=== PATIENT | female | born 1990 | race Caucasian/White ===

== ENCOUNTER 2021-03-01 01:51 | Inpatient (IN) | payer BC, SELFPAY ==
[2021-03-01] VITALS (7 sets, daily range): BP systolic 117–150; BP diastolic 66–96; PULSE 88–118; RESP 16–20; TEMP 36.1–36.8; O2SAT 98–100
--- NOTE | ~2021-03-01 | XR_ITS ---
XR abdomen NG/feed tube rechec INDICATION: Evaluate NG tube position. TECHNIQUE: Limited KUB perform for evaluating NG tube . COMPARISON: 03/01/2021 FINDINGS: NG tube tip in the stomach. Visualized bowel gas pattern is unremarkable. IMPRESSION: 1: NG tube tip in the stomach. Reviewed, dictated and finalized at location B.
--- NOTE | ~2021-03-01 | XR_ITS ---
EXAMINATION: XR abdomen/kub 1V DATE: 03/02/2021 05:36 INDICATION: Small bowel obstruction TECHNIQUE: A supine view of the abdomen on radiographs was obtained. COMPARISON: 03/01/2021 FINDINGS: Nasogastric tube tip projects over the region of the gastric pylorus. Small amount of gas and stool s cattered throughout the colon. Single loop of nondilated gas-filled loops of small bowel in the right abdomen. Bones are unremarkable. IMPRESSION: 1. Nonspecific bowel gas pattern with no dilated loops of gas-filled bowel to suggest obstruction. Reviewed, dictated and finalized at location A. IMPRESSION: 1. Nonspecific bowel gas pattern with no dilated loops of gas-filled bowel to s uggest obstruction.
--- NOTE | ~2021-03-01 | XR_ITS ---
EXAMINATION: XR UGI water soluble w sbs EXAM DATE: 03/02/2021 11:03 INDICATION: sbo f/u TECHNIQUE: Limited water-soluble upper GI examination was performed followed by small bowel series. Pulsed dose reduction fluoroscopy was used with fluoroscopic time of 0.1 minutes. A total of 15 image s obtained for the exam. The DAP for this procedure was 19 Gycm2. Correlation is made to CT abdomen and pelvis from yesterday. FINDINGS: There is no esophageal stricture, diverticulum or mass identified. Gastroesophageal juncti on is normal in appearance. Reflux was not demonstrated during this examination. The stomach has a normal appearance without evidence of mass lesion, ulceration or filling defect. T here is normal rugal fold pattern. The duodenum and duodenal sweep are normal in appearance. Approximately 50 cm of the terminal ileum/distal ileum is mildly dilated with some mucosal irregulari ties consistent with edema, terminal ileitis. Could be infectious, does not have rigid appearance of inflammatory bowel disease, but that can't be excluded. Contrast reached the rectum on the 15 minute image. IMPRESSION: Terminal ileitis, could be infectious etiology but can't exclude inflammatory bowel disea se. Rapid transit time. Reviewed, dictated and finalized at location A. IMPRESSION: Terminal ileitis, could be infectious etiology but can't exclude in flammatory bowel disease. Rapid transit time.
--- NOTE | ~2021-03-01 | XR_ITS ---
EXAMINATION: XR abdomen NG/feed tube insert DATE: 03/01/2021 04:10 INDICATION: Nasogastric tube insertion TECHNIQUE: A supine view of the abdomen and lower chest was obtained for evaluation of feeding tube placement. COMPARISON: CT dated 03/01/2021 FINDINGS: Nasogastric tube tip in proximal side port in the body of the stomach. Nonspecific bowel gas pattern with small amount of gas within a few nondilated loops of bowel. There is some excreted contrast at t he bilateral renal collecting system in the earlier contrast-enhanced CT . Visualized mid to lower selena ngs are clear. Heart size is normal. IMPRESSION: 1. Nasogastric tube in the stomach. Reviewed, dictated and finalized at location A.
--- NOTE | ~2021-03-01 | CT_ITS ---
EXAMINATION: CT abdomen pelvis w con DATE: 03/01/2021 03:02 INDICATION: Abdominal distention TECHNIQUE: Computed tomography (CT) of the abdomen and pelvis was performed with 100 mL Omnipaque-350 intravenous contrast. Automated exposure control and iterative reconstruction technique were employe d. The dose-length product was 1240.18 mGy-cm. COMPARISON: None FINDINGS: Lung bases are clear. Heart size is normal. No pericardial or pleural effusion. Liver, gallbladder, s pleen, pancreas, bilateral adrenal glands and kidneys are normal. There are a few mildly dilated flui d-filled loops of ileum in the lower abdomen. This extends to the ileocecal valve with pseudofeces si gn at the terminal ileum. There appears to be mild wall thickening at the terminal ileum. The colon i s largely decompressed. There is some fatty infiltration of the wall of the proximal colon likely rel ated to body habitus. Normal appendix. Small amount of likely reactive ascites in the lower abdomen a nd pelvis. Bladder, anteverted uterus and right adnexa are unremarkable. 11 mm likely partially ruptu red corpus luteum cyst at the left ovary with discontinuity to the peripherally enhancing wall of the cyst. No pathologically enlarged abdominal or pelvic lymphadenopathy. Bones are unremarkable. IMPRESSION: 1. Likely early or partial distal small bowel obstruction with pseudofeces sign at the terminal ileum where there is mild wall thickening. The wall thickening could be related to the pseudofeces or to a pre-existing terminal ileitis which could be infectious or inflammatory in etiology such as in the s etting of Crohn's disease. 2. Small likely ruptured corpus luteum cyst at the left ovary. 3. Small amount of likely reactive ascites in the lower abdomen and pelvis. Reviewed, dictated and finalized at location A. IMPRESSION: 1. Likely early or partial distal small bowel obstruction with pseudofeces sign at the terminal ileum where there is mild wall thickening. The wall thickening could be related to the pseudofeces or to a pre-existing terminal ileitis whic h could be infectious or inflammatory in etiology such as in the setting of Tool Filer hn's disease. 2. Small likely ruptured corpus luteum cyst at the left ovary. 3. Small amount of likely reactive ascites in the lower abdomen and pelvis.
--- NOTE | 2021-03-01 02:04 | ED.GENADULT ---
HPI - General Adult General Chief complaint: Unspecified Stated complaint: bowel obstruction Time Seen by Provider: 03/01/21 02:04 History of Present Illness HPI narrative: 30 yo female w/ h/o SBO presents to the ED for abdominal pain. She has intermittent severe pain since yesterday. Associated with nausea, vomiting, abdominal distention. She is not passing gas or having bowel movement. No previous surgeries. She was told that past obstruction was due to stress. Related Data Home Medications Medication Instructions Recorded Confirmed No Home Medications 03/01/21 Allergies Allergy/AdvReac Type Severity Reaction Status Date / Time nickel Allergy Rash Verified 03/01/21 01:57 Review of Systems Review of Systems: All systems reviewed & are unremarkable except as noted in HPI and below Constitutional: Constitutional: Reports no additional constitutional complaints Cardiovascular: Cardiovascular: Denies chest pain Respiratory: Respiratory: Denies dyspnea Gastrointestinal: Gastrointestinal: Reports abdominal pain, Reports bloating, Reports nausea and Reports vomiting Genitourinary: Genitourinary: Reports no additional female genitourinary complaints [facility] Past Medical History Medical History (Updated 03/01/21 @ 05:23 by Denver Veliz MD) Bowel obstruction Social History Social History Gender identity (if verbalized by the patient): Female Sexual Orientation (if Verbalized by the Patient): Straight or Heterosexual Exam Const: General: healthy appearing, no acute distress and alert Orientation/consciousness: patient oriented x3 HENMT: Head: normal to inspection Neck: Neck: normal visual inspection Resp: Effort & Inspection: normal respiratory effort Auscultation: clear to auscultation bilaterally, no rales, no rhonchi and no wheezes Cardio: Jugular venous distension: no JVD Rate: tachycardic Rhythm: regular rhythm Heart sounds: no murmurs GI: Inspection: distended GI Palp: Yes Firmness to palpation present (GI) and No Tenderness to palpation present (GI) Skin: General skin exam: normal color Neuro: General: patient oriented x3 and moves all extremities Speech: normal speech Extrem: General: no edema Psych: Appearance: well kempt Affect: normal affect Course Vital Signs Vital signs: Vital Signs Temperature 36.8 C 03/01/21 01:53 Pulse Rate 118 H 03/01/21 01:53 Respiratory Rate 20 03/01/21 01:53 Blood Pressure 150/96 H 03/01/21 01:53 Pulse Oximetry 99 04/01/21 01:53 Temperature 36.8 C 03/01/21 01:53 Pulse Rate 97 03/01/21 04:14 Respiratory Rate 16 03/01/21 04:14 Blood Pressure 145/86 H 03/01/21 04:14 Pulse Oximetry 99 03/01/21 04:14 Medical Decision Making MDM Narrative Medical decision making narrative: SBO on CT. NG placed. Differential Diagnosis Differential Diagnosis: SBO, diverticulitis, constipation, UTI, other Medical Records Medical records reviewed: Yes I reviewed the external patient's medical records. Vital Signs Vital Signs: Vital Signs Temperature 36.8 C 03/01/21 01:53 Pulse Rate 118 H 03/01/21 01:53 Respiratory Rate 20 03/01/21 01:53 Blood Pressure 150/96 H 03/01/21 01:53 Pulse Oximetry 99 03/01/21 01:53 Temperature 36.8 C 03/01/21 01:53 Pulse Rate 97 03/01/21 04:14 Respiratory Rate 16 03/01/21 04:14 Blood Pressure 145/86 H 03/01/21 04:14 Pulse Oximetry 99 03/01/21 04:14 Lab Data Lab results reviewed: Yes I reviewed the patient's lab results. Result diagrams: 03/01/21 02:22 03/01/21 02:22 Labs: Lab Results 03/01/21 03/01/21 03/01/21 Range/Units 02:22 02:22 02:22 WBC 15.3 H (4.5-10.0) K/mm3 RBC 4.75 (4.2-5.4) M/mm3 Hgb 13.2 (12.0-15.0) g/dL Hct 39.5 (37.0-47.0) % MCV 83.2 (80-100) fl MCH 27.8 (26-34) pg MCHC 33.4 (32-36) g/dl RDW 14.7 H (11.5-14.5) % Plt Count 341 (150-375) k/mm3 MPV 10.
[2021-03-01] MEDS: ONDANSETRON INJ 4 MG/2 ML VIAL IV PUSH ×2 (02:23→05:48)
[2021-03-01] MEDS: MORPHINE SULFATE (*CRX) 4 MG/ML INJ IV PUSH ×2 (02:23→05:47)
[2021-03-01 02:32] LABS: Basophils Percent Auto 0.2 % (0.2-1.2); Eosinophils Percent Auto 0.2 % (0-4.4); Hematocrit 39.5 % (37.0-47.0); Hemoglobin 13.2 g/dL (12.0-15.0); Immature Granulocyte Absolute 0.06 K/mm3 (0.00-0.031); Immature Granulocyte Percent A 0.4 % (0-0.5); Lymphocytes Percent Auto 11.1 % (18.3-44.2); Mean Corpuscular HGB Conc 33.4 g/dl (32-36); Mean Corpuscular Hemoglobin 27.8 pg (26-34); Mean Corpuscular Volume 83.2 fl (80-100); Mean Platelet Volume 10.1 fl (7.4-10.4); Monocytes Absolute Auto 0.9 K/mm3 (0.1-0.6); Monocytes Percent Auto 5.7 % (2.6-8.5); Neutrophils Absolute Auto 12.6 K/mm3 (1.3-6.7); Neutrophils Percent Auto 82.4 % (45.5-73.1); Platelet Count Result 341 k/mm3 (150-375); Red Blood Count 4.75 M/mm3 (4.2-5.4); Red Cell Distribution Width 14.7 % (11.5-14.5); White Blood Count 15.3 K/mm3 (4.5-10.0)
[2021-03-01 02:41] LABS: Add Urine Microscopic? YES; Appearance Urine Cloudy (Clear); Bacteria Urine Trace /hpf; Bilirubin Urine Negative (Negative); Blood Urine Negative (Negative); Color Urine Yellow (Yellow); Glucose Urine UA Negative (Negative); Ketones Urine Negative (Negative); Leukocyte Esterase Ur 2+ LEU/UL (Negative); Mucus Urine Few /lpf; Nitrate Urine Negative (Negative); Protein Urine 1+ mg/dL (Negative); Specific Grav Ur 1.023 (1.001-1.035); Squamous Epithelial Cell Urine Many /hpf (Few); Urobilinogen Urine Negative mg/dL (<2.0)
[2021-03-01 02:48] LABS: Alanine Aminotransferase 39 U/L (4-35); Albumin Level 4.7 g/dL (3.5-5.1); Alkaline Phosphatase 77 U/L (38-126); Anion Gap 8 mmol/L (8-16); Aspartate Amino Transferase 30 U/L (14-36); Bilirubin,Total 0.6 mg/dL (0.2-1.3); Blood Urea Nitrogen 11 mg/dL (7-17); Calcium 9.2 mg/dL (8.4-10.2); Carbon Dioxide 29 mmol/L (22-30); Chloride 101 mmol/L (98-107); Estimated CRCL calculation 114 ml/min; Estimated Glomerular Filt Rate > 60; Glucose 163 mg/dL (65-105); Lipase 164 U/L (23-300); Potassium 3.8 mmol/L (3.4-5.0); Sodium 138 mmol/L (137-145)
--- NOTE | 2021-03-01 03:00 | PC.NURSE ---
Patient in radiology
--- NOTE | 2021-03-01 05:00 | ADMGEN ---
This patient, Gavi Tubbs, was admitted to 2 Medical Room 260-. Patient/family oriented to hospital policies and general routines including ID bracelet, bed and alarms, visiting hours, pain management, procedures, bathroom and other care routines, personal items, smoking policy, room service/diet, and visiting hours. Information on how to activate the Rapid Response Team has been discussed. Patient/Family are encouraged to report perceived risks to care and to ask questions if they do not understand what they are told or what they should do.
[2021-03-01] MEDS: LACTATED RINGERS 1,000 ML 125 ML IV CONT ×3 (06:00→21:46)
[2021-03-01] MEDS: ENOXAPARIN 40 MG/0.4 ML SYRINGE SUB-Q (08:28)
[2021-03-01] MEDS: FAMOTIDINE 20 MG/2 ML VIAL IV PUSH ×2 (08:28→23:18)
--- NOTE | 2021-03-01 08:50 | PM.IMHP ---
H&P: HPI History of Present Illness Date/Time: 03/01/21 08:50 Chief Complaint: Abdominal pain Narrative: This is a 30-year-old female who presented to the emergency department with complaints of abdominal pain, vomiting, and bloating. She reports having a history of a small bowel obstruction about 6 years ago that resolved with conservative management. Since then, she has had no other issues or complaints until yesterday. She began having mild cramping abdominal pain yesterday afternoon. As time went on, the pain gradually worsened and she developed bloating, nausea, and vomiting. She attempted taking Dulcolax with no relief. Due to her worsening symptoms, she presented to the emergency department for further evaluation. CT scan of abdomen and pelvis showed likely an early or partial distal small-bowel obstruction with pseudo feces sign at the terminal ileum where there is mild wall thickening. Also noted was a small likely ruptured corpus luteum cyst at the left ovary, and small amount of reactive ascites in the lower abdomen and pelvis. Labs revealed white blood cell count of 15,000. In the ER, she was initially tachycardic with a heart rate of 118, which has since improved. Our service was contacted by the ED physician for findings of a partial small-bowel obstruction. The patient is now admitted in this setting. An NG tube has been placed and she is now on IV fluids and bowel rest. The patient is now seen on the medical floor. She reports slight improvement in her abdominal pain and bloating. No other complaints at this time. No personal history or family history of inflammatory bowel disease. Denies fatigue, weight loss, or diarrhea. No blood in stool ever noted. No fever or chills at home. No history of abdominal surgeries. She reports being in the [place] for her honeymoon for 2 weeks, and just flew home last weekend. Review of Systems Review of Systems: All systems reviewed & are unremarkable except as noted in HPI and below Constitutional: Constitutional: Reports as per HPI, Denies anorexia, Denies chills, Denies fatigue, Denies fever(s), Denies poor appetite, Denies weight gain and Denies weight loss Eyes: Eyes: Reports no additional eye complaints and Denies change in vision ENT: Reports system reviewed and no additional complaints, except as documented, Reports Normal hearing present and Denies dizziness Cardiovascular: Cardiovascular: Reports no additional cardiovascular complaints, Denies chest pain and Denies leg edema Respiratory: Respiratory: Reports no additional respiratory complaints, Denies cough and Denies dyspnea Gastrointestinal: Gastrointestinal: Reports as per HPI, Reports no additional gastrointestinal complaints, Reports abdominal pain, Reports belching, Denies melena, Reports bloating, Denies hematochezia, Denies change in bowel habits, Denies change in stool character, Denies constipation, Denies diarrhea, Denies loose stools, Reports nausea, Reports vomiting and Denies hematemesis Genitourinary: Genitourinary: Denies hematuria and Denies dysuria Musculoskeletal: Musculoskeletal: Denies abnormal gait, Denies deformity, Denies joint swelling, Denies numbness and Denies tingling Integumentary/Breasts: Skin/Breast: Denies wounds and Denies jaundice Neurologic: Reports system reviewed and no additional complaints, except as documented, Reports Normal hearing present, Denies abnormal gait, Denies dizziness, Denies focal weakness, Denies numbness and Denies tingling Psychiatric: Psychiatric: Denies anxiety and Denies depression Endocrine: Endocrine: Denies fatigue [facility] Past Medical History Medical History Bowel obstruction 2015 treated conservatively at [facility] Surgical History Surgical History No significant past surgical history Family History Family Hi
[2021-03-02 05:36] LABS: Hematocrit 35.2 % (37.0-47.0); Hemoglobin 11.1 g/dL (12.0-15.0); Mean Corpuscular HGB Conc 31.5 g/dl (32-36); Mean Corpuscular Hemoglobin 26.6 pg (26-34); Mean Corpuscular Volume 84.4 fl (80-100); Mean Platelet Volume 10.3 fl (7.4-10.4); Platelet Count Result 293 k/mm3 (150-375); Red Blood Count 4.17 M/mm3 (4.2-5.4); White Blood Count 10.5 K/mm3 (4.5-10.0)
[2021-03-02 06:00] VITALS: BP 120/52; PULSE 70; RESP 16; TEMP 36.2; O2SAT 96
[2021-03-02 06:29] LABS: Anion Gap 3 mmol/L (8-16); Blood Urea Nitrogen 8 mg/dL (7-17); Calcium 8.2 mg/dL (8.4-10.2); Carbon Dioxide 32 mmol/L (22-30); Chloride 103 mmol/L (98-107); Estimated CRCL calculation 103 ml/min; Estimated Glomerular Filt Rate > 60; Glucose 90 mg/dL (65-105); Sodium 138 mmol/L (137-145)
[2021-03-02] MEDS: KCL 20 MEQ/D5/0.9% SOD CHL 1,000 ML 80 ML IV CONT (07:01)
--- NOTE | 2021-03-02 07:35 | PM.PNGS ---
Progress Note: A&P Assessment and Plan (1) SBO (small bowel obstruction): Code(s): K56.609 - Unspecified intestinal obstruction, unspecified as to partial versus complete obstruction Status: Acute Assessment and Plan: appears to have resolved. Will get Gastrografin upper GI small-bowel follow-through per NG tube. If contrast passes through with relatively normal transit, will DC NG tube and start oral intake. Labs were reviewed and looked good. Much improved. Subjective Subjective Date/Time Seen: 03/02/21 07:35 Patient reports: no new complaints, feels better, pain is less (Pain is gone), flatus and no bowel movement Review of Systems Review of Systems: All systems reviewed & are unremarkable except as noted in HPI and below Constitutional: Constitutional: Denies chills, Denies fever(s) and Denies headache(s) Cardiovascular: Cardiovascular: Denies chest pain and Denies dyspnea Respiratory: Respiratory: Denies cough and Denies dyspnea Gastrointestinal: Gastrointestinal: Reports as per HPI, Denies abdominal pain, Denies nausea and Denies vomiting Neurologic: Denies confusion and Denies headache(s) Exam Const: General: comfortable and no acute distress; No confusion Orientation/consciousness: patient oriented x3 and No confusion GI: Inspection: non-distended GI Palp: Yes Soft to palpation, No Tenderness to palpation present (GI), No Guarding due to palpation present (GI) and No Rebound tenderness present Auscultation: normal bowel sounds Neuro: General: patient oriented x3, no focal motor deficits and No confusion Extrem: General: no calf tenderness and no edema Psych: Affect: normal affect Insight: Good insight present (Psych) Judgement: Good judgement present (Psych) Objective Data Vital Signs Vital Signs: Vital Signs - 24 hr 03/01/21 14:00 03/01/21 22:00 03/01/21 22:44 Temperature 36.4 C 36.4 C L Pulse Rate 88 90 Respiratory Rate 16 16 Blood Pressure 130/66 117/68 Pulse Oximetry 100 100 99 Intake/Output Intake/Output: Intake & Output 02/27/21 02/28/21 03/01/21 03/02/21 23:59 23:59 23:59 23:59 Intake Total 2000 700 Output Total 850 Balance 1150 700 Meds/Results Medications: Active Medications Generic Name Dose Route Start Last Admin Trade Name Freq PRN Reason Stop Dose Admin Enoxaparin Sodium 40 mg 03/01/21 09:00 03/01/21 08:28 Enoxaparin 40 Mg/0.4 Ml Syringe SUB-Q 40 mg DAILY QING Administration Famotidine 20 mg 03/01/21 09:00 03/01/21 23:18 Famotidine 20 Mg/2 Ml Vial IV PUSH 20 mg Q12HR QING Administration Ibuprofen 800 mg in 200 mls @ 400 mls/hr 03/01/21 06:23 Caldolor 800 Mg/200 Ml IVPB Q6H PRN Pain Rated 4-6 Potassium Chloride/Dextrose/Sod Cl 1,000 mls @ 80 mls/hr 03/02/21 06:20 03/02/21 07:01 Kcl 20 Meq/D5/0.9% Sod Chl IV CONT 80 mls/hr .[id number] QING Administration Morphine Sulfate 4 mg 03/01/21 04:19 03/01/21 05:47 Morphine Sulfate (*Crx) 4 Mg/Ml Inj IV PUSH 4 mg Q2H PRN Administration Pain Rated 7-10 Ondansetron HCl 4 mg 03/01/21 04:19 03/01/21 05:48 Ondansetron Inj 4 Mg/2 Ml Vial IV PUSH 4 mg Q4H PRN Administration Nausea Phenol 1 spray 03/01/21 06:24 Phenol/Sod Pheno [place] (*Bkc) MUCOUS MEM PRN PRN Sore Throat Radiology Results: ITS Impressions Abdomen/Pelvis CT 03/01/21 07:37 IMPRESSION: 1. Likely early or partial distal small bowel obstruction with pseudofeces sign at the terminal ileum where there is mild wall thickening. The wall thickening could be related to the pseudofeces or to a pre-existing terminal ileitis which could be infectious or inflammatory in etiology such as in the setting of Crohn's disease. 2. Small likely ruptured corpus luteum cyst at the left ovary. 3. Small amount of likely reactive ascites in the lower abdomen and pelvis. Abdomen X-Ray 03/02/21 07:09 IMPRESSION: 1. Nonspecific bowel gas pattern
[2021-03-02] MEDS: ENOXAPARIN 40 MG/0.4 ML SYRINGE SUB-Q (09:23)
[2021-03-02] MEDS: FAMOTIDINE 20 MG/2 ML VIAL IV PUSH (09:24)
[2021-03-02 13:40] VITALS: BP 127/75; PULSE 91; RESP 16; TEMP 36.7; O2SAT 100
--- NOTE | 2021-03-02 14:10 | PM.DS ---
DS: Admitting Diagnosis Admitting Diagnosis Admitting Diagnosis: Small-bowel obstruction DS: Discharge Diagnosis Discharge Diagnosis (1) SBO (small bowel obstruction): Code(s): K56.609 - Unspecified intestinal obstruction, unspecified as to partial versus complete obstruction Status: Resolved DS: Summary Hospital Course Hospital Course: Patient is a 30-year-old [facility] severe abdominal pain with nausea and vomiting. She came to the emergency room. Evaluation there showed abdominal tenderness and distention. CT scan showed evidence of a small-bowel obstruction. She had a previous small bowel obstruction about 6 years ago treated at [facility]. This resolved without surgery. Patient has no previous history of small-bowel obstruction. She was admitted [facility]. A nasogastric tube was placed. IV fluids were started and analgesics on a p.r.n. basis were given. She improved rather quickly. By the morning of hospital day 2., she was pain-free and passing flatus. She had a water-soluble contrast upper GI small-bowel follow-through given per her NG tube. This went through very quickly and showed a normal study. She tolerated liquids well was able to be discharged later in the day 03/02/2021. She will follow up with her primary care doctor. Status at Discharge Functional status at discharge: independent ambulation Overall status at discharge: patient is progressing back to baseline Time Spent with Patient Time attestation: Total time spent providing and/or coordinating discharge services: Time spent: Less than 30 minutes Exam GI: Inspection: non-distended GI Palp: Yes Soft to palpation and No Tenderness to palpation present (GI) Auscultation: normal bowel sounds DS: Data Data Completed and Pending Labs on day of discharge: Labs from last 24 hours 03/02/21 03/02/21 04:39 04:39 WBC 10.5 H RBC 4.17 L Hgb 11.1 L Hct 35.2 L MCV 84.4 MCH 26.6 MCHC 31.5 L RDW 15.0 H Plt Count 293 MPV 10.3 Sodium 138 Potassium 4.0 Chloride 103 Carbon Dioxide 32 H Anion Gap 3 L BUN 8 Creatinine 0.70 Estim Creat Clear Calc 103 Estimated GFR > 60 Glucose 90 Calcium 8.2 L Discharge Plan Discharge Attending physician on discharge: Jay Mayer Discharging Clinician: Jay Mayre Anticipated Discharge Date/Time: 03/02/21 18:00 Patient Disposition: Home, Self-Care Activity: as tolerated Diet: as tolerated and regular Discharge Instructions: Resume normal activities as tolerated Patient Instructions: Antibiotic Form Stand Alone Forms: General Discharge Information Follow-up/Referrals: PHYSICIAN NOT ON STAFF,NONSTAFF [Primary Care Provider] - None Discharge Medications: Continued No Home Medications RF: 0 Date of admission: 03/01/21 04:20 Primary Care Provider: PHYSICIAN NOT ON STAFF,NONSTAFF Admitting Provider: Jay Mayer Attending physician on admission: Jay Mayer Condition: Stable
--- NOTE | 2021-03-02 14:21 | PC.NURSE ---
On 03/02/21, the student, [Martha Frye ], provided care and completed [facility] documentation on this patient. I have reviewed the student's documentation and agree with the findings.
== END 2021-03-02 18:00 | disposition home or self-care (01) | DRG 390 ==
LOC: ANHED 04:25 → ANH2MED 04:33
PROVIDERS: Admitting Provider Surgery; Emergency Provider Emergency Medicine; Visit Provider Surgery
DX: K56.609 Unspecified intestinal obstruction, unspecified as to partial versus complete obstruction (principal); N83.202 Unspecified ovarian cyst, left side
CPT/HCPCS: 36415; 74018; 74177; 74240; 74248; 80048; 80053; 81001; 81025; 83690; 85025; 85027; 96374; 96375; 99285; A9270; J1650; J2270; J2405; J3480; J7120; Q9967

== ENCOUNTER 2024-04-18 14:42 | Emergency (ER) | payer BC, SELFPAY ==
--- NOTE | ~2024-04-18 | US_ITS ---
EXAMINATION: US pelvic complete DATE: 04/18/2024 15:44 INDICATION: post op pain , status post left ovary retrieval. TECHNIQUE: Multiple transabdominal and endovaginal sonographic images of the pelvis were obtained. COMPARISON: None. FINDINGS: Uterus: 10.3 x 4.8 x 5.4 cm. Endometrial complex measures 3 mm. Right Ovary: 5.0 x 4.9 x 4.5 cm. Vascular flow is present. Left Ovary: 5.6 x 3.0 x 2.7 cm. Vascular flow is present. 1.2 cm mixed echogenicity foci in the left ovarian parenchyma, likely representing sites of a retrievable. There is no free fluid in the pelvis. 5.6 cm nonvascular echogenic mass in the bladder. IMPRESSION: 5.6 cm echogenic bladder mass, presumably hemorrhagic clot. Post surgical changes in the left ovary. Reviewed, dictated and finalized at location K.
--- NOTE | ~2024-04-18 | CT_ITS ---
EXAMINATION: CT abdomen pelvis w con DATE: 04/18/2024 16:36 INDICATION: flank pain TECHNIQUE: Computed tomography (CT) of the abdomen and pelvis was performed with 100 mL Omnipaque-350 intravenous contrast including delayed postcontrast imaging. Automated exposure control and iterativ e reconstruction technique were employed. The dose-length product was 1348.72 mGy-cm. COMPARISON: 03/01/2021; ultrasound pelvis 04/18/2024. FINDINGS: Lower thorax: Unremarkable Liver: Normal. Biliary/Gallbladder: Gallbladder is normal. No bile duct dilation. Pancreas: No mass or duct dilation. Spleen: Normal. Adrenals:No mass. Kidneys: Severely delayed left nephrogram, with only minimal contrast seen in several left-sided vishnu yamila in 30 minute delayed images. The left kidney is still in the cortical contrast phase in the 30 mi nute delayed images. Mild left hydronephrosis. Subcentimeter right midpole hypodensity too small to c haracterize but most likely represents a cyst. GI tract: No small or large bowel dilation. Normal appendix. Mesentery/Peritoneum: No ascites, mass, or free air. Retroperitoneum: No mass. Pelvis: 5.8 cm hyperdense mass in the left posterior aspect of the urinary bladder. Inflammatory stra nding surrounding the distal left ureter. Normal uterus. Normal left ovary. Multiple right ovarian cy sts. Small volume hyperdense free pelvic fluid which increased slightly in the 30 minute delayed imag es. Soft Tissues: Soft tissues and body wall unremarkable. Bones: No acute osseous finding. IMPRESSION: CT findings suspicious for distal left ureteral injury with subsequent predominantly intraureteral he morrhage, urinary bladder clot and severe left obstructive uropathy. Small volume hyperdense free pelvic fluid which increases slightly in the delayed scan, possibly repr esenting low volume peritoneal venous hemorrhage. Ureteral leak is not excluded, given the lack of di stal left ureteral contrast filling. Results reported telephonically to Maryuri Bocanegra APRN by Dr. Barnes at 5:24 PM on 04/18/2024. Reviewed, dictated and finalized at location K. IMPRESSION: CT findings suspicious for distal left ureteral injury with subsequent predomin antly intraureteral hemorrhage, urinary bladder clot and severe left obstructiv e uropathy. Small volume hyperdense free pelvic fluid which increases slightly in the delay ed scan, possibly representing low volume peritoneal venous hemorrhage. Uretera l leak is not excluded, given the lack of distal left ureteral contrast filling . Results reported telephonically to Maryuri Bocanegra APRN by Dr. Barnes at 5:24 PM on .
[2024-04-18 14:46] VITALS: BP 176/86; PULSE 112; RESP 16; TEMP 37.1; O2SAT 100
--- NOTE | 2024-04-18 14:57 | ED.GENADULT ---
HPI - General Adult General Chief complaint: Back Pain/Injury Stated complaint: left side pain Time Seen by Provider: 04/18/24 14:46 History of Present Illness HPI narrative: Gavi Tubbs is a 33 y/o female who presents today with reports of having egg retrieval today from her left ovary. This was her 6th time and when she got home she got severe pain to her left flank /left side area - she states she has never experienced pain like this before and came straight here. She states that she had a bowel prep yesterday and urinated a large amount today Denies abdominal pain/ no nausea/vomiting Related Data Home Medications Medication Instructions Recorded Confirmed No Home Medications 03/01/21 03/01/21 Allergies Allergy/AdvReac Type Severity Reaction Status Date / Time nickel Allergy Rash Verified 03/01/21 05:35 Review of Systems Review of Systems: CONSTITUTIONAL: Denies fever, chills, or sweats. EYES: Denies visual changes, redness, or discharge. ENT: Denies rhinorrhea, congestion, sore throat, or otalgia. CARDIOVASCULAR: Denies chest pain, palpitations, or edema. RESPIRATORY: Denies cough or dyspnea. GASTROINTESTINAL: Denies abdominal pain, nausea, vomiting, or diarrhea. Reports left flank pain/ left side pain GENITOURINARY: Denies dysuria or hematuria. SKIN: Denies rash or itching. MUSCULOSKELETAL: Denies back pain, joint pain, or myalgia. NEUROLOGIC: Denies headache, numbness, dizziness, or weakness. PSYCHIATRIC: Denies anxiety or depression. [facility] Past Medical History Medical History Bowel obstruction 2015 treated conservatively at [facility] Surgical History Surgical History No significant past surgical history Family History Family History Father Myocardial infarction Other Myocardial infarction Grandparent Alzheimer disease Social History Social History Social History: Wishes her , Arias Anglin, to be her decision-maker if needed. Smoking status: Never smoker Alcohol intake: current Alcohol use details: 1 glass of wine per month Substance use: never Substance use type: does not use Living arrangements: with family Additional living arrangements comments: Lives with her . 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 Gender identity (if verbalized by the patient): Female Sexual Orientation (if Verbalized by the Patient): Straight or Heterosexual Spiritual care concerns: No Exam Narrative: GENERAL: Well-appearing, well-nourished, and in no acute distress. HEAD: Normocephalic, atraumatic. EYES: PERRLA and EOMI. ENT: Nares clear, no rhinorrhea or epistaxis. Mucous membranes moist. Oropharynx without tonsillar hypertrophy exudate or other lesions. NECK: Supple. No adenopathy or masses. No carotid bruits or JVD CHEST: Clear to auscultation. No respiratory distress. No wheezes rales or rhonchi HEART: Regular rate and rhythm. No murmur heard. Normal peripheral pulses. ABDOMEN: Soft, nontender, nondistended, normal active bowel sounds. + left CVA / left side pain worse with palpation EXTREMITIES: Normal range of motion. No edema. SKIN: Warm, dry, no rash. NEURO: No focal deficits. Alert and oriented x3. PSYCH: Normal mood and affect. Course Vital Signs Vital signs: Vital Signs Temperature 37.1 C 04/18/24 14:46 Pulse Rate 112 H 04/18/24 14:46 Respiratory Rate 16 04/18/24 14:46 Blood Pressure 176/86 H 04/18/24 14:46 Pulse Oximetry 100 04/18/24 14:46 Oxygen Delivery Room Air 04/18/24 14:46 Temperature 37.1 C 04/18/24 14:46 Pulse Rate 105 H 04/18/24 21:12 Respiratory Rate 1
[2024-04-18 15:04] LABS: Basophils Percent Auto 0.3 % (0.2-1.2); Hematocrit 38.5 % (37.0-47.0); Hemoglobin 12.3 g/dL (12.0-15.0); Immature Granulocyte Absolute 0.05 K/mm3 (0.00-0.031); Immature Granulocyte Percent A 0.4 % (0-0.5); Lymphocytes Absolute Auto 1.01 K/mm3 (0.9-3.2); Lymphocytes Percent Auto 8.6 % (18.3-44.2); Mean Corpuscular HGB Conc 31.9 g/dl (32-36); Mean Corpuscular Hemoglobin 27.8 pg (26-34); Mean Corpuscular Volume 87.1 fl (80-100); Mean Platelet Volume 10.3 fl (7.4-10.4); Monocytes Absolute Auto 0.4 K/mm3 (0.1-0.6); Monocytes Percent Auto 3.2 % (2.6-8.5); Neutrophils Absolute Auto 10.3 K/mm3 (1.3-6.7); Neutrophils Percent Auto 87.5 % (45.5-73.1); Platelet Count Result 318 k/mm3 (150-375); Red Blood Count 4.42 M/mm3 (4.2-5.4); Red Cell Distribution Width 14.7 % (11.5-14.5); White Blood Count 11.7 K/mm3 (4.5-10.0)
[2024-04-18] MEDS: SODIUM CHLORIDE 0.9% IV 1,000 ML 999 ML IV CONT (15:11)
[2024-04-18] MEDS: ONDANSETRON INJ 4 MG/2 ML VIAL IV PUSH (15:11)
[2024-04-18 15:16] LABS: Alanine Aminotransferase 44 U/L (6-35); Albumin Level 4.5 g/dL (3.5-5.1); Alkaline Phosphatase 66 U/L (38-126); Anion Gap 9 mmol/L (4-12); Aspartate Amino Transferase 40 U/L (14-36); Bilirubin,Total 0.6 mg/dL (0.2-1.3); Blood Urea Nitrogen 6 mg/dL (7-17); Calcium 8.8 mg/dL (8.4-10.2); Carbon Dioxide 22 mmol/L (22-30); Chloride 105 mmol/L (98-107); Estimated CRCL calculation 120 ml/min; Estimated Glomerular Filt Rate > 60; Glucose 179 mg/dL (65-110); Potassium 4.1 mmol/L (3.4-5.0); Sodium 136 mmol/L (137-145)
[2024-04-18] MEDS: MORPHINE SULFATE (*CRX) 4 MG/ML INJ IV PUSH (16:16)
[2024-04-18 17:00] LABS: Appearance Urine Turbid (Clear); Bacteria Urine 1+ /hpf; Blood Urine 2+ (Negative); Color Urine Red (Yellow); Glucose Urine UA Trace mg/dL (Negative); Ketones Urine Negative (Negative); Leukocyte Esterase Ur 2+ LEU/UL (Negative); Need Manual Microscopic Reviewed; Nitrate Urine Positive (Negative); Non Pathogenic Casts 0-2; Protein Urine 2+ mg/dL (Negative); RBC Urine >100 /hpf (0-2); Specific Grav Ur 1.015 (1.001-1.035); Squamous Epithelial Cell Urine Moderate /hpf (Few); Urobilinogen Urine 0.2 mg/dL (<2.0); WBC Urine 21-50 /hpf (0-3); pH Urine 5.5 (5.0-9.0)
[2024-04-18 17:03] LABS: Add Urine Microscopic? YES
[2024-04-18 17:46] VITALS: BP 163/85; PULSE 106; RESP 18; O2SAT 99
[2024-04-18 19:13] VITALS: BP 160/106; PULSE 127; RESP 16; O2SAT 100
[2024-04-18] MEDS: KETOROLAC 30 MG/ML VIAL (*BKC) IV PUSH (19:16)
[2024-04-18 21:08] VITALS: BP 136/79; PULSE 100; RESP 13; O2SAT 99
[2024-04-18 21:12] VITALS: BP 136/79; PULSE 105; RESP 12; O2SAT 99
== END 2024-04-18 22:06 | disposition short-term general hospital (02) ==
PROVIDERS: Emergency Provider Nurse Practitioner Family
DX: S37.19XA Other injury of ureter, initial encounter (principal); N13.9 Obstructive and reflux uropathy, unspecified; N99.89 Other postprocedural complications and disorders of genitourinary system; Y83.8 Other surgical procedures as the cause of abnormal reaction of the patient, or of later complication, without mention of misadventure at the time of the procedure
CPT/HCPCS: 36415; 74177; 76856; 80053; 81001; 85025; 87086; 87088; 96361; 96374; 96375; 99285; J1885; J2270; J2405; J7030; Q9967